=== PATIENT | female | born 1995 | race Caucasian/White ===

== ENCOUNTER 2017-09-26 20:08 | Observation (INO) | payer OTHER ==
[~2017-09-26] VITALS: Ht 165.1 cm; Wt 96.4 kg
[2017-09-26 20:37] LABS: GLUCOSE,POINT OF CARE 142 MG/DL (70-110)
[2017-09-26 21:21] VITALS: BP 112/69
[2017-09-26] MEDS ORDERED: PREN1TAB80 PO (21:25)
[2017-09-26] MEDS ORDERED: GLYB5 PO (21:25)
== END 2017-09-26 22:10 | disposition home or self-care (01) ==
LOC: EMS 20:08 → 4S 20:46 → INTOOBSV 20:46
PROVIDERS: ADMIT Obstetrics & Gynecology; ATTEND Obstetrics & Gynecology
DX: O24.415 Gestational diabetes mellitus in pregnancy, controlled by oral hypoglycemic drugs (principal); Z3A.33 33 weeks gestation of pregnancy
CPT/HCPCS: 59025; 82962; G0378

== ENCOUNTER 2019-07-10 17:22 | Emergency (ER) | payer OTHER ==
[~2019-07-10] VITALS: Ht 162.6 cm; Wt 90.0 kg
[~2019-07-10 17:22] MED LIST: GLYB5 PO; PREN1TAB80 PO
[2019-07-10] MEDS ORDERED: SILVER SULFADIAZINE 1% 25 GM CREAM TP ONE (18:15)
[2019-07-10] MEDS ORDERED: HYDROCODONE/ACETAMINOPHEN 5-325 MG TABLET PO ONE (18:45)
[2019-07-10 19:18] VITALS: BP 120/82
== END 2019-07-10 19:36 | disposition home or self-care (01) ==
LOC: EMS 17:23
DX: T24.212A Burn of second degree of left thigh, initial encounter (principal); T24.211A Burn of second degree of right thigh, initial encounter; T31.0 Burns involving less than 10% of body surface; X10.0XXA Contact with hot drinks, initial encounter; Y93.89 Activity, other specified; Y92.89 Other specified places as the place of occurrence of the external cause; Y99.8 Other external cause status
CPT/HCPCS: 16020